=== PATIENT | male | born 1955 | race Caucasian/White ===

== ENCOUNTER → 2017-02-25 | Outpatient (CLI) | payer OTHER ==
[2017-02-25 18:03] LABS: URINE APPEARANCE CLEAR (CLEAR); URINE BILIRUBIN NEG (NEG); URINE COLOR YELLOW; URINE EPITHELIAL CELL AUTO 0-5 /lpf (0-5); URINE NITRITE NEG (NEG); URINE PH 5.5 (4.5-7.5); URINE SPECIFIC GRAVITY 1.018 (1.000-1.030); UROBILINOGEN NEG (NEG)
[2017-02-25 18:07] LABS: MANUAL MICROSCOPIC REQUIRED? NO; REVIEW REQ? NO
== END | disposition home or self-care (01) ==
LOC: C.LABBFT 13:00
PROVIDERS: ATTEND Physician Assistant Medical
DX: R31.9 Hematuria, unspecified (principal)

== ENCOUNTER → 2017-02-28 | Outpatient (CLI) | payer OTHER ==
[2017-02-28 16:55] LABS: URINE APPEARANCE CLEAR (CLEAR); URINE BILIRUBIN NEG (NEG); URINE COLOR YELLOW; URINE EPITHELIAL CELL AUTO 0-5 /lpf (0-5); URINE NITRITE NEG (NEG); URINE SPECIFIC GRAVITY 1.021 (1.000-1.030); UROBILINOGEN NEG (NEG)
[2017-02-28 16:59] LABS: MANUAL MICROSCOPIC REQUIRED? NO; REVIEW REQ? NO
== END | disposition home or self-care (01) ==
LOC: C.LABBFT 12:28
PROVIDERS: ATTEND Physician Assistant Medical
DX: R31.9 Hematuria, unspecified (principal)

== ENCOUNTER → 2017-03-17 | Outpatient (CLI) | payer OTHER ==
[~2017-03-17] MED LIST: ONDA4TAB10 SL; ONDA4TAB65 PO; OXYC1TAB3 PO; OXYC7.5T65 PO; TAMS0.4C38 PO
[2017-03-17 18:13] LABS: BLOOD UREA NITROGEN 21 mg/dl (7-18); BUN/CREATININE RATIO 17.1 (10-20); CREATININE 1.24 mg/dl (0.60-1.40)
== END | disposition home or self-care (01) ==
LOC: C.LAB1850 15:48
PROVIDERS: ATTEND Urology
DX: Z12.5 Encounter for screening for malignant neoplasm of prostate (principal); R31.29 Other microscopic hematuria; N40.1 Benign prostatic hyperplasia with lower urinary tract symptoms

== ENCOUNTER → 2017-03-25 | Outpatient (CLI) | payer OTHER ==
--- NOTE | 2017-03-25 14:52 | DIAGNOSTIC IMAGING REPORT ---
KUB HISTORY: Follow-up study in a patient with right-sided nephrolithiasis N20.0 Kidney [id number] COMPARISON: CT 03/24/2017. FINDINGS: The bowel gas pattern is non-obstructive. There is no organomegaly. Previously noted punctate bilateral renal calculi are not well seen. Bilateral renal shadows are partially obscured by bowel gas. 7 mm calculus of the distal right ureter is stable in positioning without significant migration overlying the mid sacrum. No pneumoperitoneum or pneumatosis. No fracture. IMPRESSION: 1. 7 mm calculus of the distal right ureter is stable in positioning without significant migration. 2. Previously noted bilateral nephrolithiasis obscured by bowel gas. Electronically signed by: Yasmany Austin M.D. 03/25/2017 2:51 PM Dictated Date/Time: 03/25/2017 2:48 PM
== END | disposition home or self-care (01) ==
LOC: C.RAD 14:07
PROVIDERS: ATTEND Nurse Practitioner Adult Health
DX: N20.0 Calculus of kidney (principal); N20.1 Calculus of ureter

== ENCOUNTER → 2017-03-26 | Outpatient (CLI) | payer OTHER | END | disposition home or self-care (01) | LOC: C.LABSPEC 17:04 | PROVIDERS: ATTEND Urology | DX: N20.0 Calculus of kidney (principal) ==

== ENCOUNTER → 2017-03-26 | Outpatient (CLI) | payer OTHER ==
--- NOTE | 2017-03-26 17:32 | DIAGNOSTIC IMAGING REPORT ---
CHEST 2 VIEWS ROUTINE HISTORY: 61 years-old Male N20.0 Kidney [id number] right-sided nephrolithiasis COMPARISON: Chest radiographs 12/01/2011 TECHNIQUE: PA and lateral views of the chest FINDINGS: Calcified right hilar lymph nodes are seen. Cardiomediastinal and hilar silhouettes are within normal limits. There is no pneumothorax, pleural effusion, focal airspace consolidation or overt pulmonary edema. Lungs are mildly hyperinflated. Bones of the chest are grossly intact. IMPRESSION: Evidence of prior granulomatous disease without acute cardiopulmonary process. The above report was generated using voice recognition software. It may contain grammatical, syntax or spelling errors. Electronically signed by: Yasmany Austin M.D. 03/26/2017 5:30 PM Dictated Date/Time: 03/26/2017 5:28 PM
[2017-03-26 17:41] LABS: BASO % 0.4 %; BASO ABS # 0.02 K/uL (0-0.2); COMPLETE YES; EOS % 3.1 %; HEMATOCRIT 41.6 % (42-52); IG% 0.2 %; LYMPH % 29.5 %; LYMPH ABS # 1.61 K/uL (1.2-3.4); MEAN CELL VOLUME 84.6 fL (80-100); MEAN CORPUSCULAR HEMOGLOBIN 27.6 pg (25-34); MEAN CORPUSCULAR HGB CONC 32.7 g/dl (32-36); MEAN PLATELET VOLUME 9.3 fL (7.4-10.4); MONO % 12.7 %; NEUT % 54.1 %; PLATELET COUNT 147 K/uL (130-400); RED BLOOD COUNT 4.92 M/uL (4.7-6.1); WHITE BLOOD COUNT 5.45 K/uL (4.8-10.8)
[2017-03-26 18:05] LABS: BLOOD UREA NITROGEN 24 mg/dl (7-18); BUN/CREATININE RATIO 19.2 (10-20); CALCIUM 8.9 mg/dl (8.5-10.1); CARBON DIOXIDE 29 mmol/L (21-32); CHLORIDE 106 mmol/L (98-107); CREATININE 1.24 mg/dl (0.60-1.40); GLUCOSE 86 mg/dl (70-99); POTASSIUM 4.3 mmol/L (3.5-5.1); SODIUM 140 mmol/L (136-145)
== END | disposition home or self-care (01) ==
LOC: C.CPL 17:00
PROVIDERS: ATTEND Urology
DX: N20.0 Calculus of kidney (principal)

== ENCOUNTER → 2017-03-28 | Day surgery (SDC) | payer OTHER ==
[2017-03-27 08:33] VITALS: Ht 172.7 cm; Wt 79.5 kg
[~2017-03-28] VITALS: Ht 172.7 cm; Wt 79.5 kg
[~2017-03-28] MED LIST changes: +ATROPINE SULFATE 0.1 MG/ML 5ML SYR IV PRN; +CIPROFLOXACIN / D5W 400 MG IV SCH; +EpHEDrine SULFATE INJ 50 MG/ML AMP IV PRN; +EpHEDrine SULFATE INJ 50 MG/ML AMP ONE; +FENTANYL CITRATE INJ 50 MCG/1 ML 2 ML VIAL IV PRN; +FENTANYL CITRATE INJ 50 MCG/1 ML 2 ML VIAL ONE; +LACTATED RINGER'S 1000ML 1,000 ML IV SCH; +LIDOCAINE HCL 2% 2 ML VIAL (20MG/ML) ONE; +MIDAZOLAM HCL 1 MG/ML 2ML VIAL ONE; -ONDA4TAB10 SL; +ONDANSETRON INJ 2 MG/ML 2 ML VIAL IV PRN; +ONDANSETRON INJ 2 MG/ML 2 ML VIAL ONE; +OXYCODONE/ACETAMINOPHEN 5-325 TAB PO PRN; +PROPOFOL IV EMULSION 10 MG/ML 20 ML VIAL IV ONE
--- NOTE | 2017-03-28 08:51 | DIAGNOSTIC IMAGING REPORT ---
KUB CLINICAL HISTORY: N20.0 Kidney [id number] nephrocalcinosis COMPARISON STUDY: 03/25/2017 FINDINGS: Unchanged position of a distal right ureteral calculus. It remains at the level of the inferior right sacroiliac joint and potentially is 1 to 1.5 cm distal compared to the prior exam. Maximum linear dimension remains 7 mm. The nephrocalcinosis the kidneys described previously again is obscured due to overlying bowel content. IMPRESSION: Slight distal migration of a distal right ureteral calculus. It currently is 1.5 cm distal to its prior location The above report was generated using voice recognition software. It may contain grammatical, syntax or spelling errors. Electronically signed by: Leonardo Davison M.D. 03/28/2017 8:49 AM Dictated Date/Time: 03/28/2017 8:48 AM
--- NOTE | 2017-03-28 09:59 | History & Physical Bridge Note ---
H&P Re-Evaluation Bridge Note: I have examined the patient, reviewed the History & Physical and in the interval since the performance of the History & Physical I have noted the following changes of clinical significance: No changes noted
--- NOTE | 2017-03-28 11:35 | Discharge Instructions ---
Discharge Instructions Date of Service Mar 28, 2017. Admission Reason for Admission: Stones Discharge Discharge Diagnosis / Problem: R distal ureteral stone s/p ESWL Discharge Goals Goal(s): Decrease discomfort, Improve function, Improve disease control, Therapeutic intervention Activity Recommendations Activity Limitations: as noted below Lifting Limitations: no more than 25 pounds, gradually increase as tolerated Exercise/Sports Limitations: rest today, gradually increase as tolerated May Resume Sexual Activity: when tolerated Shower/Bathe: no limitations Driving or Machine Use: resume 1 day after discharge . Instructions / Follow-Up Instructions / Follow-Up As scheduled in office with KUB Xray before visit Current Hospital Diet Patient's current hospital diet: Discharge Diet Recommended Diet: Regular Diet (good fluid intake) Procedures Procedures Performed: Right distal ureteral ESWL Pending Studies Studies pending at discharge: yes List of pending studies: KUB Xray before follow-up appointment Medical Emergencies . Who to Call and When: Medical Emergencies: If at any time you feel your situation is an emergency, please call 911 immediately. . Non-Emergent Contact Non-Emergency issues call your: Urologist Call Non-Emergent contact if: you have a fever, temperature is above 101, your pain is not controlled, your pain is worsening, your pain is unusual for you, your pain is concerning you, you have any medication questions . . "Provider Documentation" section prepared by Calixto Anderson. . VTE Core Measure Inpt VTE Proph given/why not?: [place]CD's [place] Drug Monitoring Program Search Results: patient reviewed within database, no issues identified (no Rx in PDMP, recent low volume Rx per patient after ER visit)
--- NOTE | 2017-03-28 11:50 | [facility] Post Operative Brief Note ---
Immediate Operative Summary Operative Date Mar 28, 2017. Pre-Operative Diagnosis Right ureteral stone Post-Operative Diagnosis Same as pre-op Procedure(s) Performed Right Extracorporeal Shock Wave Lithotripsy - Ureteral Surgeon Dr. Calixto Anderson Core Piler Surgeon(s) None Estimated Blood Loss 0 mL Findings Good stone fragmentation on fluoroscopy Specimens None Drains NA Anesthesia GALMA Complication(s) None Disposition Recovery Room / PACU
--- NOTE | 2017-03-28 12:14 | OPERATIVE REPORT ---
DATE OF OPERATION: 03/28/2017 PREOPERATIVE DIAGNOSIS: Right distal ureteral stone. POSTOPERATIVE DIAGNOSIS: Same. PROCEDURE: Right-sided distal ureteral extracorporeal shockwave lithotripsy. SURGEON: Dr. Calixto Anderson. INDUSTRIAL EDITOR: None. ANESTHESIA: General anesthesia with laryngeal mask. COMPLICATIONS: None. FINDINGS: Excellent stone fragmentation on fluoroscopy. DRAINS: None. COMPLICATIONS: None. SPECIMENS: None. DETAILS OF PROCEDURE: The patient was brought to the litho suite. He was correctly identified and the stone was visualized on his most recent x-rays. After the correct time out was performed the patient was positioned over the therapy head. An adequate level of anesthesia was administered. The extracorporeal shockwave lithotripsy treatment was then commenced. Please see the [place] Kidney Stone Management sheet for complete treatment summary. After completion of the procedure the patient was taken to the recovery room in stable condition. I attest to the content of the Intraoperative Record and any orders documented therein. Any exception s are noted below.
[2017-03-28 12:20] VITALS: TEMP 36.6
--- NOTE | 2017-03-28 12:40 | Anesthesia Progress Nt - [facility] ---
Anesthesia Post Op Note Date & Time Mar 28, 2017 at 12:39 Vital Signs Pain Intensity: 0 Vital Signs Past 12 Hours Date Time Temp Pulse Resp B/P (MAP) Pulse Ox O2 Delivery O2 Flow Rate FiO2 03/28/17 12:20 36.6 85 16 121/72 (88) 98 Room Air 03/28/17 12:14 36.4 03/28/17 12:11 Room Air 03/28/17 12:11 129/73 (83) 03/28/17 12:10 73 16 03/28/17 12:10 75 16 100 03/28/17 12:06 125/67 (80) 03/28/17 12:05 73 14 100 03/28/17 12:05 72 14 03/28/17 12:01 129/69 (83) 03/28/17 12:00 73 16 03/28/17 12:00 73 16 100 03/28/17 11:59 128/70 (79) 03/28/17 11:56 124/73 (94) 03/28/17 11:50 36.9 78 14 124/73 100 Diffusion Mask 5 03/28/17 09:30 36.6 83 16 124/77 (93) 98 Room Air Notes Mental Status: alert / awake / arousable, participated in evaluation Pt Amnestic to Procedure: Yes Nausea / Vomiting: adequately controlled Pain: adequately controlled Airway Patency, RR, SpO2: stable & adequate BP & HR: stable & adequate Hydration State: stable & adequate Anesthetic Complications: no major complications apparent
[2017-03-28 12:45] VITALS: BP 147/75; PULSE 75; O2SAT 99
== END | disposition home or self-care (01) ==
LOC: X.SURG 08:55
PROVIDERS: ATTEND Urology
DX: N20.1 Calculus of ureter (principal); N40.1 Benign prostatic hyperplasia with lower urinary tract symptoms; R35.1 Nocturia; K21.9 Gastro-esophageal reflux disease without esophagitis; L42 Pityriasis rosea; Z79.82 Long term (current) use of aspirin; Z79.899 Other long term (current) drug therapy

== ENCOUNTER → 2017-04-08 | Outpatient (CLI) | payer OTHER ==
[~2017-04-08] MED LIST changes: -ATROPINE SULFATE 0.1 MG/ML 5ML SYR IV PRN; -CIPROFLOXACIN / D5W 400 MG IV SCH; -EpHEDrine SULFATE INJ 50 MG/ML AMP IV PRN; -EpHEDrine SULFATE INJ 50 MG/ML AMP ONE; -FENTANYL CITRATE INJ 50 MCG/1 ML 2 ML VIAL IV PRN; -FENTANYL CITRATE INJ 50 MCG/1 ML 2 ML VIAL ONE; -LACTATED RINGER'S 1000ML 1,000 ML IV SCH; -LIDOCAINE HCL 2% 2 ML VIAL (20MG/ML) ONE; -MIDAZOLAM HCL 1 MG/ML 2ML VIAL ONE; -ONDANSETRON INJ 2 MG/ML 2 ML VIAL IV PRN; -ONDANSETRON INJ 2 MG/ML 2 ML VIAL ONE; -OXYCODONE/ACETAMINOPHEN 5-325 TAB PO PRN; -PROPOFOL IV EMULSION 10 MG/ML 20 ML VIAL IV ONE
--- NOTE | 2017-04-08 17:30 | DIAGNOSTIC IMAGING REPORT ---
KUB CLINICAL HISTORY: N20.0 Kidney [id number] nephrocalcinosis COMPARISON STUDY: 03/28/2017 FINDINGS: Nonobstructive bowel pattern. Multiple small calcified splenic granulomas. The 7 mm calcification distal right ureter previously described now appears fragmented in 2 to stone fragments measuring 3 and 4 mm respectively. These are slightly distal in location as compared to the prior study. No additional urinary tract calcifications are identified. IMPRESSION: 1. Interval fragmentation of a 7 mm calculus distal right ureter. 2. The 2 fragments remain closely opposed, and are slightly distal to its previous location at the inferior right sacroiliac joint. The above report was generated using voice recognition software. It may contain grammatical, syntax or spelling errors. Electronically signed by: Leonardo Davison M.D. 04/08/2017 5:28 PM Dictated Date/Time: 04/08/2017 5:26 PM
== END | disposition home or self-care (01) ==
LOC: C.RAD 15:43
PROVIDERS: ATTEND Urology
DX: N20.0 Calculus of kidney (principal); N20.1 Calculus of ureter

== ENCOUNTER → 2017-04-09 | Outpatient (CLI) | payer OTHER | END | disposition home or self-care (01) | LOC: C.LABSPEC 17:36 | PROVIDERS: ATTEND Urology | DX: N20.0 Calculus of kidney (principal) ==

== ENCOUNTER → 2017-04-25 | Outpatient (CLI) | payer OTHER ==
[~2017-04-25] MED LIST changes: +OPTIRAY 300 IV PRN
--- NOTE | 2017-04-28 08:38 | DIAGNOSTIC IMAGING REPORT ---
IVP W/OR W/O TOMOGRAMS CLINICAL HISTORY: N20.0 Kidney [id number] COMPARISON STUDY: KUB dated 04/08/2017 FINDINGS: The yarn spinner radiograph demonstrates two right pelvic basin calcifications measuring 4.6 mm and 4.1 mm respectively. The patient was injected with 100 cc of Optiray 300. The 1 minute film reveals prompt bilateral nephrograms. There is mild fullness the right renal collecting system as compared to the left. Single ureters drain each kidney. The right pelvic basin calcifications are located within the distal right ureter. On the post void film, there is no significant ureteral dilatation. The calculi are essentially nonobstructing. No bladder abnormalities are visualized. IMPRESSION: There are 2 distal right ureteral calculi measuring 4.6 and 4.1 mm respectively. These currently result in little to no obstructive change. Electronically signed by: Jim Card M.D. 04/25/2017 2:22 PM Dictated Date/Time: 04/25/2017 2:19 PM
== END | disposition home or self-care (01) ==
LOC: C.RAD 12:40
PROVIDERS: ATTEND Urology
DX: N20.0 Calculus of kidney (principal); N20.1 Calculus of ureter

== ENCOUNTER → 2017-06-09 | Outpatient (CLI) | payer OTHER ==
[~2017-06-09] MED LIST changes: -OPTIRAY 300 IV PRN
--- NOTE | 2017-06-09 16:42 | DIAGNOSTIC IMAGING REPORT ---
KUB HISTORY: Follow-up study in a patient with kidney stones KIDNEY STONES COMPARISON: IVP study 04/25/2018, KUB 04/08/2017. FINDINGS: The bowel gas pattern is non-obstructive. There is no organomegaly. There are 2 ovoid calcifications of the right hemipelvis redemonstrated measuring 5 and 4 mm respectively which appear to be in unchanged positioning from prior study. Renal shadows are obscured by bowel gas without definite nephrolithiasis or additional ureteral calculi identified. Punctate calcifications are seen throughout the spleen. Mild to moderate stool volume is seen throughout the colon. No pneumoperitoneum or pneumatosis. No fracture. IMPRESSION: Unchanged positioning of the 2 ovoid calcifications of the right hemipelvis suggesting calculi of the distal right ureter. No additional or new ureteral calculi identified. Electronically signed by: Yasmany Austin M.D. 06/09/2017 4:41 PM Dictated Date/Time: 06/09/2017 4:39 PM
== END | disposition home or self-care (01) ==
LOC: C.RAD 15:53
PROVIDERS: ATTEND Urology
DX: N20.0 Calculus of kidney (principal)

== ENCOUNTER → 2017-09-01 | Outpatient (CLI) | payer OTHER ==
--- NOTE | 2017-09-01 17:50 | DIAGNOSTIC IMAGING REPORT ---
(RENAL)RETROPERITON COMP CLINICAL HISTORY: 61 years-old Male presenting with N20.0 Kidney [id number]. TECHNIQUE: Real-time grayscale and limited color Doppler ultrasound imaging of the kidneys and bladder was performed. COMPARISON: 03/27/2017 and IVP from 04/25/2017. FINDINGS: Right kidney: Normal echogenicity of renal parenchyma. Right kidney measures 11.1 cm. No hydronephrosis. No convincing evidence of calculus or mass. Left kidney: Normal echogenicity of renal parenchyma. Left kidney measures 10.3 cm. Minimal pelvocaliectasis. No convincing evidence of calculus or mass. Bladder: Normal. Bilateral ureteral jets present. Other: None. IMPRESSION: 1. Normal renal ultrasound. No convincing evidence of hydronephrosis. Electronically signed by: Raul Roman M.D. 09/01/2017 5:48 PM Dictated Date/Time: 09/01/2017 5:47 PM
== END | disposition home or self-care (01) ==
LOC: C.ULTR 15:46
PROVIDERS: ATTEND Urology
DX: N20.0 Calculus of kidney (principal)

== ENCOUNTER → 2017-09-09 | Outpatient (CLI) | payer OTHER ==
--- NOTE | 2017-09-09 16:16 | DIAGNOSTIC IMAGING REPORT ---
KUB CLINICAL HISTORY: KIDNEY STONES COMPARISON STUDY: 06/09/2017 FINDINGS: There is no pathologic bowel dilatation. Two pelvic basin calcifications are again visualized on the right. One has moved distally measuring 4 mm. This likely represents a distal right ureteral calculus. The second 5 mm calcification which was felt to represent a distal right ureteral calculus is unchanged in position. No renal calculi are visualized on conventional radiographic imaging IMPRESSION: 2 distal right ureteral calculi are again visualized. One has moved distally to the level of the ureterovesical junction Electronically signed by: Jim Card M.D. 09/09/2017 4:14 PM Dictated Date/Time: 09/09/2017 4:11 PM
== END | disposition home or self-care (01) ==
LOC: C.RAD 15:44
PROVIDERS: ATTEND Urology
DX: N20.1 Calculus of ureter (principal)

== ENCOUNTER → 2017-09-11 | Outpatient (CLI) | payer OTHER ==
[2017-09-11 12:24] LABS: BASO % 0.8 %; BASO ABS # 0.04 K/uL (0-0.2); EOS % 2.9 %; EOS ABS # 0.15 K/uL (0-0.5); HEMATOCRIT 45.8 % (42-52); HEMOGLOBIN 15.6 g/dL (14.0-18.0); LYMPH % 32.4 %; LYMPH ABS # 1.69 K/uL (1.2-3.4); MEAN CELL VOLUME 83.6 fL (80-100); MEAN CORPUSCULAR HEMOGLOBIN 28.5 pg (25-34); MEAN CORPUSCULAR HGB CONC 34.1 g/dl (32-36); MONO % 10.2 %; MONO ABS # 0.53 K/uL (0.11-0.59); NEUT % 53.7 %; PLATELET COUNT 180 K/uL (130-400); RED CELL DISTRIBUTION WIDTH CV 12.5 % (11.5-14.5); RED CELL DISTRIBUTION WIDTH SD 37.7 fL (36.4-46.3); WHITE BLOOD COUNT 5.21 K/uL (4.8-10.8)
[2017-09-11 13:02] LABS: BLOOD UREA NITROGEN 20 mg/dl (7-18); CARBON DIOXIDE 28 mmol/L (21-32); CREATININE 1.43 mg/dl (0.60-1.40); POTASSIUM 4.2 mmol/L (3.5-5.1); SODIUM 137 mmol/L (136-145)
== END | disposition home or self-care (01) ==
LOC: C.LAB 09:46
PROVIDERS: ATTEND Urology
DX: N20.0 Calculus of kidney (principal)

== ENCOUNTER → 2017-09-24 | Outpatient (CLI) | payer OTHER ==
--- NOTE | 2017-09-24 17:26 | DIAGNOSTIC IMAGING REPORT ---
KUB CLINICAL HISTORY: 61 years-old Male presenting with N20.0 Kidney [id number]. TECHNIQUE: Single supine view of the abdomen was obtained. COMPARISON: 09/09/2017. FINDINGS: Nonobstructive bowel gas pattern. Moderate stool burden primarily in the right and transverse colon. No gross pneumoperitoneum. No radiographic evidence of renal calculi. One of the previously noted distal right ureteral calculi are no longer visualized consistent with passage. The second distal right ureteral calculus remains present. Osseous structures normal. Lung bases clear. IMPRESSION: 1. Interval passage of one of the two distal right ureteral calculi. No radiographic evidence of renal calculi. Electronically signed by: Raul Roman M.D. 09/24/2017 5:25 PM Dictated Date/Time: 09/24/2017 5:19 PM
== END | disposition home or self-care (01) ==
LOC: C.RAD 16:54
PROVIDERS: ATTEND Urology
DX: N20.1 Calculus of ureter (principal)

== ENCOUNTER → 2017-09-26 | Day surgery (SDC) | payer OTHER ==
[2017-09-12 10:19] VITALS: Ht 172.7 cm; Wt 79.5 kg
[~2017-09-26] VITALS: Ht 172.7 cm; Wt 79.5 kg
[~2017-09-26] MED LIST changes: +ATROPINE SULFATE 0.1 MG/ML 5ML SYR IV PRN; +CIPROFLOXACIN 400MG / D5W IV SCH; +DEXAMETHASONE SOD INJ 4 MG/ML VIAL ONE; +EpHEDrine SULFATE INJ 50 MG/ML AMP IV PRN; +FENTANYL CITRATE INJ 50 MCG/1 ML 2 ML VIAL IV PRN; +FENTANYL CITRATE INJ 50 MCG/1 ML 2 ML VIAL ONE; +LACTATED RINGER'S 1000ML 1,000 ML IV SCH; +LIDOCAINE HCL 2% 2 ML VIAL (20MG/ML) ONE; +MIDAZOLAM HCL 1 MG/ML 2ML VIAL ONE; -ONDA4TAB65 PO; +ONDANSETRON INJ 2 MG/ML 2 ML VIAL ONE; -OXYC1TAB3 PO; -OXYC7.5T65 PO; +OXYCODONE/ACETAMINOPHEN 5-325 TAB PO PRN; +PROPOFOL IV EMULSION 10 MG/ML 20 ML VIAL ONE; -TAMS0.4C38 PO
--- NOTE | 2017-09-26 11:28 | History & Physical Bridge Note ---
H&P Re-Evaluation Bridge Note: I have examined the patient, reviewed the History & Physical and in the interval since the performance of the History & Physical I have noted the following changes of clinical significance: right ESWL of residual distal ureteral stone, KUB images reviewed, distal stone passed, residual stone within ureter on IVP and CT scan.
--- NOTE | 2017-09-26 12:40 | Discharge Instructions ---
Discharge Instructions Date of Service September 26, 2017. Admission Reason for Admission: Stones Discharge Discharge Diagnosis / Problem: R distal ureteral stone s/p ESWL Discharge Goals Goal(s): Decrease discomfort, Improve disease control, Therapeutic intervention Activity Recommendations Activity Limitations: as noted below Lifting Limitations: no more than 25 pounds, gradually increase as tolerated Exercise/Sports Limitations: rest today, gradually increase as tolerated May Resume Sexual Activity: when tolerated Shower/Bathe: no limitations Driving or Machine Use: resume 1 day after discharge . Instructions / Follow-Up Instructions / Follow-Up As scheduled in office with KUB Xray before visit. Current Hospital Diet Patient's current hospital diet: Discharge Diet Recommended Diet: Regular Diet (good fluid intake) Procedures Procedures Performed: Right distal ureteral extracorporeal shockwave lithotripsy Pending Studies Studies pending at discharge: yes List of pending studies: KUB Xray before visit Medical Emergencies . Who to Call and When: Medical Emergencies: If at any time you feel your situation is an emergency, please call 911 immediately. . Non-Emergent Contact Non-Emergency issues call your: Urologist Call Non-Emergent contact if: you have a fever, temperature is above 101, your pain is not controlled, your pain is worsening, your pain is unusual for you, your pain is concerning you, you have any medication questions . . "Provider Documentation" section prepared by Calixto Anderson. .
--- NOTE | 2017-09-26 13:15 | [facility] Post Operative Brief Note ---
Immediate Operative Summary Operative Date September 26, 2017. Pre-Operative Diagnosis Right Ureteral Calculi Post-Operative Diagnosis Same as pre-op Procedure(s) Performed Right Extracorporeal Shock Wave Lithotripsy - Ureteral Surgeon Dr. Alvin Anderson Legal Recovery Specialist Surgeon(s) None Estimated Blood Loss 0 mL Findings Consistent with Post-Op Diagnosis Specimens None Drains None Anesthesia Type General Complication(s) none Disposition Accompanied Pt To Recover: no Disposition: Recovery Room / PACU
--- NOTE | 2017-09-26 13:30 | OPERATIVE REPORT ---
DATE OF OPERATION: 09/26/2017 PREOPERATIVE DIAGNOSIS: Persistent right distal ureteral stone. POSTOPERATIVE DIAGNOSIS: Persistent right distal ureteral stone. PROCEDURE: Right distal ureteral extracorporeal shock wave lithotripsy. SURGEON: Dr. Calixto Anderson SAFETY COMPANION: None. ANESTHESIA: General anesthesia with laryngeal mask. COMPLICATIONS: None. FINDINGS: Fair fragmentation of stone on fluoroscopy. DETAILS OF PROCEDURE: The patient was brought to the litho suite. He was correctly identified and the stone was visualized on his most recent x-rays. After the correct time out was performed the patient was positioned over the therapy head. An adequate level of anesthesia was administered. The extracorporeal shockwave lithotripsy treatment was then commenced. Please see the [place] Kidney Stone Management sheet for complete treatment summary. After completion of the procedure the patient was taken to the recovery room in stable condition. I attest to the content of the Intraoperative Record and any orders documented therein. Any exception s are noted below.
--- NOTE | 2017-09-26 13:33 | Anesthesia Progress Nt - [facility] ---
Anesthesia Post Op Note Date & Time September 26, 2017 at 13:33 Vital Signs Vital Signs Past 12 Hours Date Time Temp Pulse Resp B/P (MAP) Pulse Ox O2 Delivery O2 Flow Rate FiO2 09/26/17 13:25 112/63 09/26/17 13:24 56 16 09/26/17 13:24 57 16 100 09/26/17 13:21 100/55 09/26/17 13:20 86/55 09/26/17 13:20 36.4 56 16 96/55 99 Mask 09/26/17 11:14 36.4 66 16 109/72 (84) 97 Room Air Notes Mental Status: alert / awake / arousable, participated in evaluation Pt Amnestic to Procedure: Yes Nausea / Vomiting: adequately controlled Pain: adequately controlled Airway Patency, RR, SpO2: stable & adequate BP & HR: stable & adequate Hydration State: stable & adequate Anesthetic Complications: no major complications apparent
[2017-09-26 14:01] VITALS: TEMP 36.4
[2017-09-26 14:22] VITALS: BP 136/80; PULSE 55; O2SAT 100
== END | disposition home or self-care (01) ==
LOC: X.SURG 10:51
PROVIDERS: ATTEND Urology
DX: N20.1 Calculus of ureter (principal); N40.1 Benign prostatic hyperplasia with lower urinary tract symptoms; K21.9 Gastro-esophageal reflux disease without esophagitis; Z87.442 Personal history of urinary calculi; Z86.19 Personal history of other infectious and parasitic diseases; Z82.49 Family history of ischemic heart disease and other diseases of the circulatory system; Z83.3 Family history of diabetes mellitus; Z80.3 Family history of malignant neoplasm of breast; Z79.82 Long term (current) use of aspirin